=== PATIENT | male | born 1945 | race Caucasian/White ===

== ENCOUNTER 2021-04-26 12:54 | Observation (INO) | payer MEDICARE ==
[~2021-04-26] VITALS: Ht 180.3 cm; Wt 74.0 kg
--- NOTE | 2021-04-26 12:55 | NUR ---
TO ROOM FOR TRIAGE
[2021-04-26 13:35] LABS: GFR > 60 ML/MIN (>=60 (CALC)); GFR FOR AFR.AMER. > 60 ML/MIN (>=60 (CALC))
[2021-04-26 13:47] LABS: HEMATOCRIT 50.4 % (39.0-50.0); HEMOGLOBIN 16.8 g/dl (14.0-18.0); IMMATURE GRANULOCYTES 0.2 % (0.0-5.0); MEAN CORPUSCULAR HGB 27.7 pG CALC (26.0-32.0); MEAN CORPUSCULAR HGB CONC 33.3 g/dL CAL (32.0-36.0); NEUT# 11.53 thou/uL (1.82-7.42); RED BLOOD COUNT 6.07 mill/uL (4.70-6.10); RED CELL DISTRI WIDTH 13.1 % (11.5-15.5)
[2021-04-26 14:00] LABS: ALBUMIN 4.1 g/dL (3.2-5.0); ALKALINE PHOSPHATASE 81 u/l (38-126); ANION GAP 16 (6-22 (CALC)); BILIRUBIN, TOTAL 0.8 mg/dL (0.0-1.4); BUN 16 mg/dL (8-23); BUN/CREATININE RATIO 13 (12-20 (CALC)); CARBON DIOXIDE 20 mmol/l (22-30); CHLORIDE 105 mmol/l (95-108); CREATININE 1.2 mg/dL (0.7-1.3); GFR 59 ML/MIN (>=60 (CALC)); GFR FOR AFR.AMER. > 60 ML/MIN (>=60 (CALC)); LIPASE 84 u/l (23-300); POTASSIUM 4.2 mmol/l (3.5-5.1); SGOT/AST 18 u/l (19-48); SODIUM 137 mmol/l (137-146); TOTAL PROTEIN 8.4 g/dL (6.3-8.2)
--- NOTE | 2021-04-26 14:00 | NUR ---
RETURNED FROM XRAY, RESTING ON STRETCHER. CALL FLORES WITHIN REACH
--- NOTE | 2021-04-26 15:00 | NUR ---
RESTING ON STRETCHER. CALL FLORES WITHIN REACH
--- NOTE | 2021-04-26 16:06 | NUR ---
SBAR PRINTED TO FLOOR
--- NOTE | 2021-04-26 17:02 | NUR ---
RESTING ON STRETCHER REPORT CALLED TO DARIO
--- NOTE | 2021-04-26 17:07 | NUR ---
RECIEVED REPORT FROM DEE PRESTON
--- NOTE | 2021-04-26 17:10 | NUR ---
PT TRANSPORTED TO MED SUR[facility] WITH RN IN STABLE CONDITION
[2021-04-26 17:20] LABS: URINE BILIRUBIN - DIPSTICK NEGATIVE (NEGATIVE); URINE BLOOD DIPSTICK NEGATIVE (NEGATIVE); URINE COLOR YELLOW; URINE GLUCOSE - DIPSTICK NEGATIVE (NEGATIVE); URINE KETONE NEGATIVE (NEGATIVE); URINE LEUK ESTERASE NEGATIVE (NEGATIVE); URINE PH 7.5 (4.5-8.0); URINE PROTEIN - DIPSTICK NEGATIVE (NEG-TRACE); URINE UROBILINOGEN - DIPSTICK 0.2 E.U./dL (0.2)
[2021-04-26 17:22] LABS: URINE NITRITE - DIPSTICK NEGATIVE (Negative)
--- NOTE | 2021-04-26 17:25 | NUR ---
PT ARRIVED TO [facility] ROOM 283 VIA PORTABLE IN STABLE CONDITION. PT AMBULATED TO BED WITH O DIFFICULTY. PT IS A/O X3. ASESSMENT AND VITALS COMPLETED. BP 144/85, HR 85, O2 92% ON ROOM AIR. RESPIRATIONS ARE EVEN AND UNLABORED WITH NO DISTRSS NOTED.2L NC AT BEDSIDE PRN. PT INSTRUCTED TO REAPPLIED IF NEEDED. PT VERBLAIZED UNDERSTANDING. LUNG SOUNDS ARE CLEAR.HEART RHYTHM IS NORMAL. BOWEL SOUNDS ARE ACTIVE. #20G EMS LAC FLUSHED AND INFUSING WITH IVF PERORDER, SITE REMAINS HEALTHY AND PATENT. SKIN INTACT. SCROTUM REDDENED. PT DENIES OF ANY PAINS OR DISCOFORTS AT THIS TIME. PT DOES STATES HE HAS PAIN IN SCROTUM WHILE COUGHING. PT ORIENTED TO ROOM AND CALL LIGHT SYSTEM. PT DENIES ANY ALLERGIES. ALLERGY BAND AND FALL RISK BAND APPLIED. ALL SAFETY PRECAUTIONS ARE IN PLACE WITH CALL LIGHT IN REACH. WILL CONTINUE TO MONITOR.
[2021-04-26 17:27] VITALS: BP 144/85
[2021-04-26 18:59] VITALS: BP 135/89
--- NOTE | 2021-04-26 20:30 | NUR ---
PT RESTING COMFORTABLY IN BED, HERNIA NOTED. PT DENIES PAIN EXCEPT WHEN HERNIA IS PALPATED. PT REPORTS HE HAS NOT HAD A BM FOR THAT LAST 4-5 DAYS. PT REMAINS NPO AT THIS TIME. NO SURGICAL PLANS OF NOW. NO S/S OF DISTRESS, NO COMPLAINTS VOICED. SAFETY PRECAUTIONS IN PLACE, BED IN LOWEST POSITION, CALL LIGHT WITHIN REACH. WILL MONITOR
--- NOTE | 2021-04-27 00:15 | NUR ---
PT RESTING COMFORTABLY, NO CONCERNS VOICED AT THIS TIME. DENIES PAIN. NO S/S OF DISTRESS NOTED. PT REMAINS NPO. SAFETY PRECAUTIONS IN PLACE. WILL MONITOR
--- NOTE | 2021-04-27 01:17 | NUR ---
DR. VIEYRA AT BEDSIDE
[2021-04-27 04:00] VITALS: BP 129/81
--- NOTE | 2021-04-27 04:39 | NUR ---
PT SCHEDULED FOR SURGERY LATER THIS AFTERNOON. PT IS NPO AT THIS TIME. NO COMPLAINTS VOICED. WILL CONTINUE TO MONITOR
[2021-04-27 05:46] LABS: HEMATOCRIT 45.4 % (39.0-50.0); HEMOGLOBIN 15.2 g/dl (14.0-18.0); MEAN CELL VOLUME 83.8 fL CALC (80.0-100.0); MEAN CORPUSCULAR HGB CONC 33.5 g/dL CAL (32.0-36.0); RED BLOOD COUNT 5.42 mill/uL (4.70-6.10); RED CELL DISTRI WIDTH 13.1 % (11.5-15.5)
[2021-04-27 05:53] LABS: ANION GAP 13 (6-22 (CALC)); BUN 17 mg/dL (8-23); BUN/CREATININE RATIO 16 (12-20 (CALC)); CARBON DIOXIDE 21 mmol/l (22-30); CHLORIDE 106 mmol/l (95-108); CREATININE 1.1 mg/dL (0.7-1.3); GFR > 60 ML/MIN (>=60 (CALC)); GFR FOR AFR.AMER. > 60 ML/MIN (>=60 (CALC)); MAGNESIUM 2.2 mg/dL (1.6-2.3); POTASSIUM 4.6 mmol/l (3.5-5.1); SODIUM 136 mmol/l (137-146)
[2021-04-27 14:49] VITALS: BP 132/78
[2021-04-27 19:00] VITALS: BP 158/86
--- NOTE | 2021-04-27 20:15 | NUR ---
PT RESTING IN BED QUIETLY. S/P R INGUINAL HERNIA REPAIR TODAY. HEALING INCISION TO R LOWER ABDOMEN. SURGICAL INCISION CLOSED WITH DERMABOND. NO S/S OF INFECTION NOTED. EDGES ARE WELL APPROXIMATED. NO S/S OF DEHISENCE. PT TOLERATING PAIN WELL. ASSESSMENTS COMPETED, PLEASE SEE DOCUMENTATION. NO COMPLAINTS VOICED, NO S/S OF DISTRESS. SAFETY PRECAUTIONS IN PLACE, BED IN LOWEST POSITION, CALL LIGHT WITHIN REACH. WILL MONITOR
[2021-04-28 00:02] VITALS: BP 126/65
--- NOTE | 2021-04-28 00:30 | NUR ---
PT DOING WELL AND REQUESTING COMFORTABLY. NO CONCERNS VOICED AT THIS TIME. PT REPORTS MINIMAL PAIN, ADVISED HE HAS THE RIGHT TO REFUSE SCHEDULED PAIN MEDS. PT VERBALIZED UNDERSTANDING. NO S/S OF DISTRESS. SAFETY PRECAUTIONS IN PLACE, CALL LIGHT WITHIN REACH. WILL MONITOR
[2021-04-28 04:00] VITALS: BP 109/59
--- NOTE | 2021-04-28 04:42 | NUR ---
PT RESTING QUIETLY IN BED. NO COMPLAINTS VOICED AT THIS TIME. BREATHING EVEN AND UNLABORED. INCISIONAL LINE REMAINS CDI, NO DRAINAGE OR SIGNS OF DEHISCENCE NOTED. IV FLUIDS CONTINUE. PT IS STILL ORDERED TO BE NPO, WILL F/U THIS AM TO VERIFY DIET IS CORRECT. NO S/S OF DISTRESS NOTED. SAFETY PRECAUTIONS IN PLACE, CALL LIGHT WITHIN REACH.
[2021-04-28 07:55] VITALS: BP 136/77
--- NOTE | 2021-04-28 08:00 | NUR ---
PT RESTING IN THE BED, NO DISTRESS NOTED DENIES PAIN. IV INFUSING. INCISION WELL APPROXIMATED. REPOSITIOENDN FOR COMFORT, SIDE RAILS UP CALL LIGHT IN REACH BED LOCKED IN LOW POSITION, WILL CONTINUE OT MONIOTR THE PATIENT.
--- NOTE | 2021-04-28 10:00 | NUR ---
OUT OF THE BED TO AMB IN THE ROOM YASH WELL. BACK INTO THE BED, INSTRUCTED IN USE OF ISSU, WITH RETURN DEMONSTRATION.
[2021-04-28 10:30] VITALS: BP 164/95
--- NOTE | 2021-04-28 12:00 | NUR ---
REDID B/P MANUALLY 148/72. NO DISTRESS NOTED AT THIS TIME.
--- NOTE | 2021-04-28 14:00 | NUR ---
IV TO HL PER ORDER. UP IN THE BEDSIDE CHAIR CALL LIGHT IN REACH, YASH WELL. ENCOURAGED TO USE ISSU. WILL CONTINUE OT MONIOTR THE PATIENT.
[2021-04-28] MEDS ORDERED: PERCOCET 5/325M1 TAB PO (14:01)
--- NOTE | 2021-04-28 16:28 | NUR ---
COMPLETE HYGINE CARE GIVEN.
--- NOTE | 2021-04-28 17:38 | NUR ---
PT RESTING COMFORTABLE IN THE BED NO DISTRESS NOTED AT THIS TIME.
[2021-04-28 19:11] VITALS: BP 135/75
--- NOTE | 2021-04-28 20:33 | NUR ---
PT IN BED IN SUPPINE POSITION C/O HICCUPS. ABD APPEARS SOFT NON-TENDER. LOVONOX SHOT ADMINISTERED AT THIS TIME. LUNG SOUNDS ARE CLEAR, PT LOCX4. RLQ ABD INCISION CDI W/DERMABOND IN PLACE AT THIS TIME. DENIES PAIN. ENCOURAGED HIM TO USE IS, REPORTS HE IS TRYING BUT DID NOT WANT TO DEMONSTRATE ITS USAGE AT THIS TIME DUE TO HICCUPS. PT REPORTS LAST STOOL OUTPUT WAS 1 WEEK AGO, PT ASKED FOR SOMETHING TO HELP HIM GO, WILL NOTIFY PHYSICIAN.
--- NOTE | 2021-04-28 21:36 | NUR ---
ADDITIONAL DRINK PROVIDED. PT HAS LIGHTS AND TV OFF AND STATES HE IS GOING TO SLEEP.
--- NOTE | 2021-04-28 23:58 | NUR ---
PT WAS SLEEPING, MEDICATED FOR PAIN SCHEDULED 4/10 ON PAIN SCALE AFTER WAKING UP TO MY ENTERING THE ROOM. NO S/O DISTRESS NOTED. CALL LIGHT AT SIDE AND PT ENCOURAGED TO CALL NEEDS ARISE.
[2021-04-29 04:26] VITALS: BP 157/92
--- NOTE | 2021-04-29 04:35 | NUR ---
PT SLEEPING, AWOKE TO OUR ENTERING THE ROOM. DENIES ANY NEEEDS AT THIS TIME.
--- NOTE | 2021-04-29 05:33 | NUR ---
PT DENIES PAIN AT THIS TIME. 0/10 ON PAIN SCALE. STATES HE IS NOT GOING TO TAKE THIS PAIN MEDICAITON BECAUSE HE DOES NOT NEED IT, MEDICATION RETURNED TO RETURN BOX FOR PHARMACY
--- NOTE | 2021-04-29 07:00 | NUR ---
PT REPORT RECEIVED FROM NIGHT NURSEROSALINDA
[2021-04-29 08:00] VITALS: BP 141/82
--- NOTE | 2021-04-29 08:00 | NUR ---
PT WAS FOUND RESTING IN BED IN SEMI-CACERES'S POSITION;PT IS A&OX3;VS AND ASSESSMENT WERE COMPLETED;PT REFUSED BREAKFAST TRAY STATING HE DIDN'T HAVE MUCH OF AN APPETITE, JUST READY TO GO HOME;PT DENIES ANY PAIN AT THIS TIME;HEART SOUNDS ARE REGULAR IN RATE AND RHYTHM;LUNG SOUNDS ARE CLEAR AND DIMINISHED IN THE LOWER LOBES;RESPIRATIONS ARE EVEN AND UNLABORED ON RA;#20G IV IN LAC IS SL, PATENT AND APPEARS FREE OF COMPLICATIONS AT THIS TIME;PT REPORTS HAVING A LARGE BOWEL MOVEMENT THIS MORNING;SAFETY PRECAUTIONS IN PLACE;CALL LIGHT WITHIN REACH;PT ENCOURAGED TO CALL WITH ANY NEEDS OR CONCERNS;WILL CONTINUE TO MONITOR;
--- NOTE | 2021-04-29 09:00 | NUR ---
AT BEDSIDE DISCUSSING POC WITH PT
--- NOTE | 2021-04-29 09:53 | NUR ---
Discharge instructions given. Patient verbalizes understanding of same. Discharged in stable condition via Wheelchair to Home with family. All belongings sent with pt. DISCHARGE PACKET GIVEN TO PT;DISCHARGE INSTRUCTIONS WERE EXPLAINED TO PT;PT EXPRESSED UNDERSTANDING AND HAD NO FURTHER QUESTIONS;SIGNATURE WAS OBTAINED;PT REFUSED PRESCRIPTION FOR OXYCODONE PAIN MEDICATION, STATED HE HAD NO PAIN AND DID NOT WANT IT;PRESCRIPTION WAS SHREDDED;IV WAS REMOVED WITH NO COMPLICATIONS AND CATHETER INTACT;PT WILL BE TRANSPORTED HOME WITH FAMILY PT WAS TRANSPORTED IN STABLE CONDITION TO [facility] VIA WC;ALL PT BELONGINGS WERE SENT WITH PT;PT WILL BE TRANSPORTED HOME WITH FAMILY.
== END 2021-04-29 09:53 | disposition home or self-care (01) ==
LOC: ED 12:54 → ED-I 15:12 → ED 15:30 → MS2 15:31
PROVIDERS: Family Medicine; Nurse Practitioner; ADMIT Internal Medicine; ATTEND Surgery
PROC: 0YU50JZ Supplement Right Inguinal Region with Synthetic Substitute, Open Approach (ICD-10-PCS; principal; 2021-04-27)
DX: K40.30 Unilateral inguinal hernia, with obstruction, without gangrene, not specified as recurrent (principal); D17.6 Benign lipomatous neoplasm of spermatic cord; I71.4 Abdominal aortic aneurysm, without rupture; F17.290 Nicotine dependence, other tobacco product, uncomplicated; Z20.822 Contact with and (suspected) exposure to COVID-19
CPT/HCPCS: G0378; J1650; Q9967